=== PATIENT | male | born 1985 | race Caucasian/White ===

== ENCOUNTER 2016-04-22 02:40 | Emergency (ER) | payer OTHER ==
[~2016-04-22] VITALS: Ht 175.3 cm; Wt 102.1 kg
[2016-04-22] MEDS ORDERED: LIDOCAINE 1%/EPI 1:100,000 20 ML VIAL. IJ ONE (03:15)
[2016-04-22] MEDS ORDERED: DIPHTH,PERTUSS(ACELL),TET TOX 0.5 ML DISP.SYRIN. VAX IM ONE (03:15)
[2016-04-22 03:35] LABS: BASO # 0.2 x10^3/uL (0.0-0.2); BASO % 1 % (0-3); EOS % 3 % (0-3); HEMATOCRIT 48.9 % (39.0-53.0); HEMOGLOBIN 16.8 g/dL (13.0-17.5); LYMPH # 4.5 x10^3/uL (1.0-4.8); LYMPH % 29 % (24-48); MEAN CORPUSCULAR HEMOGLOBIN 32 pg (25-35); MEAN CORPUSCULAR HGB CONC 34 g/dL (31-37); MEAN CORPUSCULAR VOLUME 92 fL (79-100); MONO % 7 % (0-9); NEUT % 59 % (31-73); PLATELET COUNT 367 x10^3/uL (140-400); RED BLOOD COUNT 5.32 x10^6/uL (4.30-5.70); RED CELL DISTRIBUTION WIDTH 13.1 % (11.5-14.5); WHITE BLOOD COUNT 15.2 x10^3/uL (4.0-11.0)
[2016-04-22] MEDS ORDERED: IV NORMAL SALINE 1000ML BAG 1,000 ML IV ONE ×2 (03:45→05:00)
[2016-04-22] MEDS ORDERED: FENTANYL PF 100 MCG/2 ML VIAL. IV ONE (03:45)
[2016-04-22] MEDS ORDERED: LORAZEPAM 2 MG/ML VIAL ONE (03:49)
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
[2016-04-22 03:57] LABS: CALCIUM 8.5 mg/dL (8.5-10.1); GFR 87.2; POTASSIUM 3.4 mmol/L (3.5-5.1)
[2016-04-22] MEDS ORDERED: LORAZEPAM 2 MG/ML VIAL IV ONE ×2 (04:15→05:00)
[2016-04-22 06:10] VITALS: BP 101/54
[2016-04-22] MEDS ORDERED: HYDR-971 PO (06:20)
[2016-04-22] MEDS ORDERED: CEPH-264 PO (06:20)
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
== END 2016-04-22 06:48 | disposition home or self-care (01) ==
LOC: ER 02:40
DX: S01.511A Laceration without foreign body of lip, initial encounter (principal); S01.81XA Laceration without foreign body of other part of head, initial encounter; F10.129 Alcohol abuse with intoxication, unspecified; V89.2XXA Person injured in unspecified motor-vehicle accident, traffic, initial encounter; Y93.89 Activity, other specified; Y92.89 Other specified places as the place of occurrence of the external cause; Y99.8 Other external cause status
CPT/HCPCS: 12052; 36415; 70450; 72125; 80048; 85027; 90471; 90715; 96361; 96374; 96375; 99285; G0480; J2060; J3010; J3490; J7030